=== PATIENT | female | born 1965 | race Caucasian/White ===

== ENCOUNTER → 2017-01-05 | Outpatient (REF) ==
[~2017-01-05] MED LIST: CARAFATE 1GM1 G PO; NEXIUM 40MG40 MG PO; NORCO 325 MG-51 TAB PO; PYRIDIUM 100MG100 MG PO; SENOKOT S 50 MG1 TAB PO; ZOLOFT 100MG100 MG PO
[2017-01-05 12:58] LABS: TOTAL IRON BINDING CAPACITY 407 ug/dL (265-497)
[2017-01-05 13:25] LABS: FERRITIN 7 ng/mL (11-264)
== END ==
LOC: ZLAB.WCH 11:06
PROVIDERS: Nurse Practitioner Family
DX: Z01.89 Encounter for other specified special examinations (principal)

== ENCOUNTER 2017-03-15 09:00 | Emergency (ER) | payer BC ==
[~2017-03-15] VITALS: Ht 167.6 cm; Wt 65.9 kg
[2017-03-15 09:03] VITALS: TEMP 98
[2017-03-15] MEDS ORDERED: ZOLOFT 100MG100 MG PO (09:25)
[2017-03-15 09:30] LABS: BASO # 0.1 (0.0-0.2); BASO % 0.4 % (0.0-2.0); EOS % 0.2 % (0-4.0); GRAN # 14.4 (1.4-6.5); HEMATOCRIT 37.5 % (37.0-47.0); LYMPH # 0.9 (1.2-3.4); LYMPH % 5.2 % (20.0-51.0); MEAN CELL VOLUME 83 fl (80.0-100.0); MEAN CORPUSCULAR HEMOGLOBIN 27 pg (27.0-31.0); MEAN CORPUSCULAR HGB CONC 32 g/dl (33.0-37.0); MEAN PLATELET VOLUME 10.1 fl (7.4-10.4); MONO # 1.1 (0.1-0.6); MONO % 6.7 % (1.7-9.3); PLATELET COUNT 279 K/mm3 (130-400); REDCELL DISTRIBUTION WIDTH-CV 15.3 % (11.5-14.5); WHITE BLOOD COUNT 16.5 K/mm3 (4.8-10.8)
[2017-03-15 09:51] LABS: ADJUSTED CALCIUM 9.4 mg/dL (8.4-10.2); ALANINE AMINOTRANSFERASE 28 U/L (9-52); ALBUMIN 4.4 gm/dL (3.5-5.0); ALKALINE PHOSPHATASE 76 U/L (50-136); ANION GAP 13 mmol/L (7-16); BILIRUBIN,TOTAL 0.8 mg/dL (0.0-1.0); BLOOD UREA NITROGEN 16 mg/dL (7-17); CALCIUM 9.7 mg/dL (8.4-10.2); CARBON DIOXIDE 26 mmol/L (22-30); CHLORIDE 101 mmol/L (98-107); CREATININE, serum 0.72 mg/dL (0.52-1.25); GLUCOSE 106 mg/dL (74-106); LIPASE 137 U/L (23-300); POTASSIUM 3.9 mmol/L (3.4-5.0); SODIUM 140 mmol/L (137-145); TOTAL PROTEIN 7.6 gm/dL (6.4-8.2)
[2017-03-15 10:03] LABS: B-TYPE NATRIURETIC PEPTIDE 51 pg/mL (0-125); TROPONIN-I < 0.012 ng/mL (0.000-0.034)
[2017-03-15] MEDS ORDERED: NEXIUM 40MG40 MG PO (12:41)
[2017-03-15] MEDS ORDERED: CARAFATE 1GM1 G PO (12:41)
[2017-03-15 14:30] VITALS: BP 106/55; PULSE 78
== END 2017-03-15 14:33 | disposition home or self-care (01) ==
LOC: COL.ER 09:00
PROVIDERS: Emergency Medicine
DX: R07.9 Chest pain, unspecified (principal); F41.9 Anxiety disorder, unspecified; F32.9 Major depressive disorder, single episode, unspecified
CPT/HCPCS: J7030; Q9967

== ENCOUNTER 2017-05-17 06:29 | Day surgery (SDC) | payer BC ==
[~2017-05-17] VITALS: Ht 167.6 cm; Wt 69.4 kg
[~2017-05-17 06:29] MED LIST changes: -NORCO 325 MG-51 TAB PO; -PYRIDIUM 100MG100 MG PO; -SENOKOT S 50 MG1 TAB PO
[2017-05-17 07:14] VITALS: BP 122/77; PULSE 59; TEMP 97.6
[2017-05-17 09:50] VITALS: BP 111/66; PULSE 62; TEMP 97.7
[2017-05-17 10:05] VITALS: BP 103/64; PULSE 57
[2017-05-17 10:20] VITALS: BP 110/68; PULSE 58
[2017-05-17 10:35] VITALS: BP 102/64; PULSE 63
[2017-05-17] MEDS ORDERED: NORCO 325 MG-51 TAB PO (11:00)
[2017-05-17] MEDS ORDERED: SENOKOT S 50 MG1 TAB PO (11:01)
[2017-05-17] MEDS ORDERED: PYRIDIUM 100MG100 MG PO (11:02)
[2017-05-17 11:05] VITALS: BP 115/68; PULSE 66
== END 2017-05-17 11:35 | disposition home or self-care (01) ==
LOC: SDCO 06:29
DX: Q62.31 Congenital ureterocele, orthotopic (principal); R31.0 Gross hematuria; K21.9 Gastro-esophageal reflux disease without esophagitis
CPT/HCPCS: C1769; C2617; J0690; J1100; J1885; J2175; J2405; J2704; J2765; J3010; J7120; Q9967

== ENCOUNTER → 2017-08-23 | Outpatient (CLI) | payer BC ==
[~2017-08-23] MED LIST changes: +NORCO 325 MG-51 TAB PO; +PYRIDIUM 100MG100 MG PO; +SENOKOT S 50 MG1 TAB PO
== END ==
LOC: COL.RAD 14:45
DX: Q62.31 Congenital ureterocele, orthotopic (principal); Z96.0 Presence of urogenital implants

== ENCOUNTER → 2018-02-17 | Outpatient (REF) ==
[2018-02-17 16:44] LABS: C-REACTIVE PROTEIN < 0.5 mg/dL (0.0-0.9)
[2018-02-17 17:17] LABS: FERRITIN 37 ng/mL (11-264)
== END ==
LOC: ZLAB.WCH 16:03
PROVIDERS: Nurse Practitioner Family
DX: Z01.89 Encounter for other specified special examinations (principal)

== ENCOUNTER 2022-06-16 16:40 | Emergency (ER) | payer OTHER ==
[~2022-06-16] VITALS: Ht 167.6 cm; Wt 74.1 kg
[2022-06-16 16:52] VITALS: TEMP 97.1
[2022-06-16 17:29] LABS: BASO % 0.6 % (0.0-2.0); EOS # 0.1 K/mm3 (0.0-0.7); EOS % 1.9 % (0.0-4.0); GRAN # 3.9 K/mm3 (1.4-6.5); GRAN % 58.3 % (42.2-75.2); HEMOGLOBIN 11.8 g/dl (12.5-16.0); LYMPH % 28.8 % (20.0-51.0); MEAN CELL VOLUME 86 fl (80.0-100.0); MEAN CORPUSCULAR HEMOGLOBIN 29 pg (27-31); MEAN CORPUSCULAR HGB CONC 34 g/dl (33.0-37.0); MEAN PLATELET VOLUME 9.8 fl (7.4-10.4); MONO # 0.7 K/mm3 (0.1-0.6); MONO % 10.3 % (1.7-9.3); PLATELET COUNT 330 K/mm3 (130-400); RED BLOOD COUNT 4.08 M/mm3 (4.10-5.30); REDCELL DISTRIBUTION WIDTH-CV 12.1 % (11.5-14.5)
[2022-06-16 17:31] LABS: HEMATOCRIT 35.2 % (37.0-47.0)
[2022-06-16 17:46] LABS: BILIRUBIN,TOTAL 0.2 mg/dL (0.2-1.2); C-REACTIVE PROTEIN 0.07 mg/dL (0.00-0.50); CALCIUM 9.6 mg/dL (8.4-10.2); CREATININE, serum 0.82 mg/dL (0.57-1.11); POTASSIUM 3.7 mmol/L (3.5-4.5); TOTAL PROTEIN 7.3 gm/dL (6.2-8.1)
[2022-06-16 18:25] VITALS: BP 150/88; PULSE 65
== END 2022-06-16 18:30 | disposition home or self-care (01) ==
LOC: COL.ER 16:40
PROVIDERS: Family Medicine
DX: R53.82 Chronic fatigue, unspecified (principal); U09.9 Post COVID-19 condition, unspecified; F32.9 Major depressive disorder, single episode, unspecified
CPT/HCPCS: J1790; J7120